=== PATIENT | male | born 1990 | race Caucasian/White ===

== ENCOUNTER 2017-03-14 12:45 | Emergency (ER) | payer OTHER ==
--- NOTE | 2017-03-14 13:55 | ER Document Report ---
HPI - HPI Patient complains to provider of: Cut lower left leg Onset: Just prior to arrival Onset/Duration: Sudden Quality of pain: Burning, Throbbing Pain Level: 5 Context: 26-year-old male cut anterior left lower leg soft tissue piece of concrete prior to arrival. Tetanus is not current. He is able to walk and does not think the bone is broken. Patient does not want x-ray offered Associated Symptoms: None Exacerbated by: Denies Relieved by: Denies Similar symptoms previously: No Recently seen / treated by doctor: No - ROS ROS below otherwise negative: Yes Systems Reviewed and Negative: Yes All other systems reviewed and negative - CARDIOVASCULAR Cardiovascular: DENIES: Chest pain - DERM Skin Color: Normal Past Medical History - General Information source: Patient - Social History Smoking Status: Current Every Day Smoker Chew tobacco use (# tins/day): No Frequency of alcohol use: None Drug Abuse: None Lives with: Family Family History: Reviewed & Not Pertinent Patient has suicidal ideation: No Patient has homicidal ideation: No - Medical History Medical History: Negative Renal/ Medical History: Denies: Hx Peritoneal Dialysis Surgical Hx: Negative - Immunizations Hx Diphtheria, Pertussis, Tetanus Vaccination: No Vertical Provider Document - CONSTITUTIONAL Agree With Documented VS: Yes Exam Limitations: No Limitations - INFECTION CONTROL TRAVEL OUTSIDE OF THE [place] IN LAST 30 DAYS: No - NECK Neck: Supple - RESPIRATORY O2 Sat by Pulse Oximetry: 97 - MUSCULOSKELETAL/EXTREMETIES Musculoskeletal/Extremeties: MAEW, FROM, Tender - 10 cm c/v shaped full thickness cut left mid anteriolateral lower leg - NEURO Level of Consciousness: Awake, Alert, Appropriate Motor/Sensory: No Motor Deficit, No Sensory Deficit - DERM Integumentary: Laceration - see above Course - Vital Signs Vital signs: Temp Pulse Resp BP Pulse Ox 97.7 F 103 H 18 129/76 H 97 03/14/17 12:51 03/14/17 12:51 03/14/17 12:51 03/14/17 12:51 03/14/17 12:51 Procedures - Laceration/Wound Repair Left Leg Time completed: 15:43 Wound length (cm): 10 Wound's Depth, Shape: Linear, Other - to sub Q tissue, c/v shaped Laceration pre-procedure: Sterile drapes applied, Other - surgiscrub Anesthetic type: 1% Lidocaine Volume Anesthetic (mLs): 25 Wound explored: Clean Irrigated w/ Saline (mLs): 300 Wound Repaired With: Sutures Suture Size/Type: 3:0, Nylon Number of Sutures: 14 - 4 vertical mattress Layer Closure?: No Post-procedure NV exam normal: Yes Complications: No Discharge - Discharge Clinical Impression: left lower leg laceration repair Condition: Good Disposition: HOME, SELF-CARE Instructions: Antibiotic Ointment Protection ([facility]), Laceration Care ([facility]), Tetanus Immunization Given ([facility]), Use of [id number]-[id number] Ibuprofen ([facility]) Additional Instructions: keep elevated for 2 days to reduce the swelling sutures in for 12 days keep clean and dry to er any signs of infection ove the counter motrin for pain Please complete the patient satisfaction survey if you get one, and return it.. If you do not receive a survey, then you can go to the [facility] website, [email or web address] and place your comments about your very good care. Thank you very much. It was a pleasure being your medical provider today. Forms: Return to Work
[2017-03-14] MEDS ORDERED: LIDOCAINE 1% INJ-PF (10 MG/ML) 30 ML SDV INJ ONE (14:17)
[2017-03-14] MEDS ORDERED: DIPH/PERTUSS(ACELL)/TETANUS VAC/PF 0.5 ML SYR (>=10YO) IM ONE (14:17)
[2017-03-14 15:59] VITALS: BP 130/77
== END 2017-03-14 15:58 | disposition home or self-care (01) ==
LOC: ER 12:45
PROC: 0HQLXZZ Repair Left Lower Leg Skin, External Approach (ICD-10-PCS; principal; 2017-03-14)
DX: S81.812A Laceration without foreign body, left lower leg, initial encounter (principal); W45.8XXA Other foreign body or object entering through skin, initial encounter; F17.200 Nicotine dependence, unspecified, uncomplicated
CPT/HCPCS: 90471; 90715; 99282